=== PATIENT | female | born 1955 | race Caucasian/White ===

== ENCOUNTER 2022-06-29 09:18 | Emergency (ER) | payer OTHER, MEDICARE, SELFPAY ==
--- NOTE | ~2022-06-29 | CT_ITS ---
EXAMINATION: CT brain wo con INDICATION: Head injury COMPARISON: None TECHNIQUE: Standard unenhanced head CT. The dose-length product (DLP) was 605.33 mGy-cm. The mA was a djusted according to patient size. Iterative reconstruction technique was employed. FINDINGS: There is no intracranial hemorrhage, acute infarction, or abnormal mass lesion. The ventric les are normal. There is no abnormal mass effect or midline shift. The horton-white matter differentiat ion is normal. The basal cisterns are patent. The orbits are normal. The paranasal sinuses, mastoids and calvarium are normal. IMPRESSION: 1. No acute intracranial abnormality. Reviewed, dictated and finalized at location A. [employer]LE[employer] CO[employer]INATOR
--- NOTE | ~2022-06-29 | XR_ITS ---
EXAMINATION: XR shoulder RT min 2V INDICATION: Right shoulder pain TECHNIQUE: Four views of the right shoulder are submitted. COMPARISON: None FINDINGS: Normal alignment. No fracture. 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 Soft tissues are unremarkable. IMPRESSION: 1. No acute osseous abnormality. Reviewed, dictated and finalized at location A. D SOFTWARE ENGINEER
--- NOTE | ~2022-06-29 | CT_ITS ---
EXAMINATION: CT cervical spine wo con DATE: 06/29/2022 09:38 INDICATION: Head injury TECHNIQUE: Computed tomography (CT) of the cervical spine was performed without intravenous contrast. The dose-length product (DLP) was 261.36 mGy-cm. Automated exposure control and iterative reconstruc tion technique were employed. COMPARISON: None FINDINGS: There is reversal of the normal cervical lordosis. There is moderate loss of intervertebral disc space height at C5-6 and C6-7 and mild loss of disc space height at C4-5. The odontoid is intac t. No fracture, dislocation, or subluxation. The vertebral body heights are normal. The prevertebral soft tissues are normal. There is moderate to severe multilevel facet and uncovertebral joint osteoar thritis. IMPRESSION: 1. Moderate cervical spondylosis without acute findings. Reviewed, dictated and finalized at location A. [employer]
--- NOTE | ~2022-06-29 | XR_ITS ---
EXAMINATION: XR ribs RT 2V w CXR 2V INDICATION: Right chest pain TECHNIQUE: AP and lateral views of the chest and 3 views of the right ribs were obtained. COMPARISON: None. FINDINGS: The lungs are free of acute opacities. No pleural effusion or pneumothorax. Calcified pulmo nary nodules and calcified bilateral hilar and mediastinal lymph nodes are consistent with old granul omatous disease. There is mild thoracic spondylosis. IMPRESSION: 1. No acute cardiopulmonary abnormality or evidence of displaced rib fracture. Reviewed, dictated and finalized at location A. [employer]
[2022-06-29 09:11] VITALS: BP 151/96; PULSE 74; RESP 16; TEMP 37; O2SAT 98
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
== END 2022-06-29 12:14 | disposition home or self-care (01) ==
LOC: ANHED 11:17
PROVIDERS: Emergency Provider Nurse Practitioner Family
DX: S16.1XXA Strain of muscle, fascia and tendon at neck level, initial encounter (principal); M25.511 Pain in right shoulder; S20.219A Contusion of unspecified front wall of thorax, initial encounter; V49.88XA Car occupant (driver) (passenger) injured in other specified transport accidents, initial encounter; Y92.410 Unspecified street and highway as the place of occurrence of the external cause
CPT/HCPCS: 70450; 71046; 71100; 72125; 73030; 99284